=== PATIENT | male | born 1955 | race Caucasian/White ===

== ENCOUNTER 2016-03-12 15:55 | Emergency (ER) | payer BC ==
--- NOTE | 2016-03-12 17:39 | ED ---
General Adult HPI - General Chief complaint: Urogenital Stated complaint: rt groin pain Time Seen by Provider: 03/12/16 17:09 Source: patient, RN notes reviewed Mode of arrival: ambulatory Limitations: no limitations - History of Present Illness Initial comments: This is a 52-year-old male presents with right-sided groin pain 2 weeks. Patient states he saw his regular physician for this pain and was treated with a steroid. Patient states he's finished the steroid and the pain is still persistent. Patient states the pain is worse when he is standing for multiple hours during the day at work. Patient states the pain improves with sitting and resting. Patient describes the pain as a burning in the right inguinal area. Patient denies any swelling, erythema or abdominal pain. Patient denies any nausea/vomiting/diarrhea, fever/chills. Patient denies any heavy lifting at work. Patient is not on any anticoagulants. Patient denies any recent fever , chills, shortness breath, chest pain, back pain, numbness, tingling, hematuria , headache, or visual changes, or any other complaints. - Related Data Home Medications Medication Instructions Recorded Confirmed No Known Home Medications [No 03/12/16 03/12/16 Known Home Medications] Allergies Allergy/AdvReac Type Severity Reaction Status Date / Time No Known Allergies Allergy Verified 03/12/16 16:14 Review of Systems ROS Statement: Those systems with pertinent positive or pertinent negative responses have been documented in the HPI. ROS Other: All systems not noted in ROS Statement are negative. Past Medical History Past Medical History: Hyperlipidemia, Hypertension Additional Past Medical History / Comment(s): HAIRLINE FRACTURES TO BILATERAL HIPS, SPINAL CORD PROBLEMS/ CHIP FX History of Any Multi-Drug Resistant Organisms: None Reported Past Surgical History: No Surgical Hx Reported Past Psychological History: No Psychological Hx Reported Smoking Status: Never smoker Past Alcohol Use History: None Reported Past Drug Use History: None Reported General Exam - General Exam Comments Initial Comments: General: The patient is awake and alert, in no distress, and does not appear acutely ill. Neck: The neck is supple, there is no tenderness or JVD. Cardiovascular: There is a regular rate and rhythm. No murmur, rub or gallop is appreciated. Respiratory: Lungs are clear to auscultation, respirations are non-labored, breath sounds are equal. No wheezes, stridor, rales, or rhonchi. Gastrointestinal: Soft, non-distended, non-tender abdomen without masses or organomegaly noted. There is no rebound or guarding present. No CVA tenderness. Bowel sounds are unremarkable. Musculoskeletal: Normal ROM, no tenderness. Strength 5/5. Sensation intact. Radial pulses equal bilaterally 2+. Neurological: A&O x 3. CN II-XII intact, There are no obvious motor or sensory deficits. Coordination appears grossly intact. Speech is normal. Skin: Skin is warm and dry and no rashes or lesions are noted. Psychiatric: Cooperative, appropriate mood & affect, normal judgment. Limitations: no limitations exam: Present: normal inspection, other (Mild tenderness to palpation of the right inguinal area, no inguinal swelling or erythema. No hernia present on exam.). Absent: testicular tenderness, urethral discharge, scrotal swelling Course Vital Signs 03/12/16 03/12/16 16:08 19:21 Temperature 98.1 F 99.2 F Pulse Rate 79 72 Respiratory 18 16 Rate Blood Pressure 126/89 106/69 O2 Sat by Pulse 98 96 Oximetry Medical Decision Making - Medical Decision Making This is a 60-year-old male who presents with right-sided groin pain. On physical exam there is no evidence of a hernia, no inguinal swelling or erythema. Mild tenderness to palpation of the right inguinal area. No testicular pain. A right groin US was done and reviewed: Ultrasound showed lymph node approximately 1 cm but otherwise no abnormalities and no sign of hernia. I discussed results with patient. I discussed that this could be a muscle strain. I discussed continue use of Tylenol and or Motrin. I discussed that patient keep his follow-up appointment with his doctor tomorrow. Discussed ice and heat to the area. I discussed return parameters. Discussed that patient should follow up with PCP in one to 2 days or return to the [facility] for any worsening symptoms or for any further concerns. Patient was receptive to this plan and patient will be discharged home. Disposition Clinical Impression: Groin pain Disposition: HOME SELF-CARE Condition: Good Instructions: Groin Pain (ED) Additional Instructions: Please continue Tylenol and/or Motrin if they've any pain. Please rest ice and heat to the area. Please continue follow-up with her primary care physician or return to the [facility] for any worsening symptoms or further concerns. Referrals: Abdifatah Grubbs MD [Primary Care Provider] - 1-2 days Time of Disposition: 19:13
[2016-03-12 19:24] VITALS: BP 106/69; PULSE 72; RESP 16; TEMP 99.2
--- NOTE | 2016-03-12 22:22 | US ---
EXAMINATION TYPE: US groin extremity RT DATE OF EXAM: 03/12/2016 6:14 PM COMPARISON: No previous CLINICAL HISTORY: Pain. Intermittent right groin pain x 2 weeks, gets worse when standing TECHNOLOGIST IMPRESSION/RADIOGRAPHIC FINDINGS: Scanned right groin area of pain: 1.0 x 0.5 cm lymph n ode seen containing a fatty hilum, otherwise appears wnl at this time, scanned left groin for compari son: appears wnl at this time IMPRESSION: Single nonenlarged right superficial inguinal lymph node containing a regular fatty hilu m and no cortical thickening. No other sonographic abnormality.
== END 2016-03-12 19:27 | disposition home or self-care (01) ==
LOC: EC 15:55
DX: R10.31 Right lower quadrant pain (principal)
CPT/HCPCS: 99284

== ENCOUNTER → 2018-09-09 | Outpatient (CLI) | payer BC ==
--- NOTE | 2018-09-09 18:37 | CT ---
EXAMINATION TYPE: CT brain wo/w con DATE OF EXAM: 09/09/2018 COMPARISON: 10/16/2010 HISTORY: syncopal episode following head injury [address] DLP: 2108.4 mGycm Automated exposure control for dose reduction was used. CONTRAST: CT scan of the head is performed with IV Contrast, patient injected with 100 mL of Isovue 300. FINDINGS: There is no abnormal enhancing mass or midline shift identified. The ventricles and sulci are within normal limits in size. Low-attenuation the white matter is nonspecific but most typical remote micro vascular ischemia. Intracranial atherosclerotic changes are noted. IMPRESSION: 1. Nonspecific white matter changes most typical remote microvascular ischemia.
== END | disposition home or self-care (01) ==
LOC: RADCTMAIN 17:51
PROVIDERS: ATTEND Family Medicine
DX: I67.82 Cerebral ischemia (principal); S09.90XA Unspecified injury of head, initial encounter; R90.82 White matter disease, unspecified; Z91.018 Allergy to other foods
CPT/HCPCS: 70470; Q9967

== ENCOUNTER → 2019-03-14 | Outpatient (CLI) | payer BC ==
[2019-03-15 08:58] LABS: Creatinine 24 Hour,Urine 1736.4 mg/24hr (1000.0-2000.0)
[2019-03-16 07:47] LABS: Total Protein 24 Hour,Urine 96 mg/24hr (42.0-225.0); Total Volume 24 Hour,Urine 1200 mls (800-1800)
== END | disposition home or self-care (01) ==
LOC: LABWHC1 10:58
PROVIDERS: ATTEND Family Medicine
DX: N18.3 Chronic kidney disease, stage 3 (moderate) (principal)
CPT/HCPCS: 36415; 81050; 82575; 84156

== ENCOUNTER → 2019-03-16 | Outpatient (CLI) | payer BC ==
--- NOTE | 2019-03-16 14:53 | US ---
EXAMINATION TYPE: US kidneys/renal and bladder DATE OF EXAM: 03/16/2019 COMPARISON: NONE CLINICAL HISTORY: N18.3 Stage III Chronic kidney disease. CKD EXAM MEASUREMENTS: Right Kidney: 9.6 x 5.4 x 5.5 cm Left Kidney: 10.2 x 5.4 x 5.6 cm Right Kidney: No hydronephrosis or masses seen Left Kidney: No hydronephrosis or masses seen Bladder: Incompletely distended and suboptimally visualized. Bilateral Jets seen: only the left There is slightly suboptimal cortical medullary differentiation. There is no evidence for hydronephro sis at this point in time. No nephrolithiasis is seen. No masses are identified. The urinary bladd er is anechoic. Bilateral ureteral jets are not seen. IMPRESSION: Very subtly decreased cortical medullary differentiation, in keeping with this patient's history of chronic kidney disease. No hydronephrosis or nephrolithiasis.
== END | disposition home or self-care (01) ==
LOC: RADUSWWP 14:11
PROVIDERS: ATTEND Family Medicine
DX: N18.3 Chronic kidney disease, stage 3 (moderate) (principal); Z91.018 Allergy to other foods
CPT/HCPCS: 76770

== ENCOUNTER 2020-04-26 11:20 | Inpatient (IN) | payer BC, OTHER ==
[2020-04-26] MEDS ORDERED: SODIUM CHLORIDE 0.9% 1,000 ML IV STA (11:53)
[2020-04-26] MEDS ORDERED: ONDANSETRON 4 MG/2 ML VIAL IVP STA (11:53)
[2020-04-26] MEDS ORDERED: PANTOPRAZOLE 40 MG/10 ML VIAL IVP STA (11:53)
[2020-04-26] MEDS ORDERED: MAG HYDROX/AL HYDROX/SIMETH 30 ML, HYOSCYAMINE ELIXIR 10 ML PO STA ×2 (11:54)
[2020-04-26 12:21] LABS: Basophils % (A) 0 %; Eosinophils # (A) 0.1 k/uL (0-0.7); Eosinophils % (A) 1 %; HCT 42.7 % (39.0-53.0); HGB 14.9 gm/dL (13.0-17.5); Lymphocytes # (A) 1.4 k/uL (1.0-4.8); Lymphocytes % (A) 11 %; MCH 31.3 pg (25.0-35.0); MCV 89.4 fL (80.0-100.0); Mean Platelet Volume 6.7; Monocytes # (A) 0.9 k/uL (0-1.0); Monocytes % (A) 7 %; Neutrophils # (A) 10.7 k/uL (1.3-7.7); Neutrophils % (A) 81 %; Platelet Count 216 k/uL (150-450); RBC 4.77 m/uL (4.30-5.90); WBC 13.1 k/uL (3.8-10.6)
[2020-04-26 12:30] LABS: Appearance,Urine Clear (Clear); Bilirubin,Urine Negative (Negative); Blood,Urine Small (Negative); Color,Urine Yellow; Glucose,Urine (UA) Negative (Negative); Ketones,Urine Trace (Negative); Leukocyte Esterase,Urine Negative (Negative); Mucus,Urine Rare /hpf; Nitrite,Urine Negative (Negative); PH, Urine 7.5 (5.0-8.0); Protein,Urine Trace (Negative); RBC,Urine 6 /hpf (0-5); Specific Gravity,Urine 1.016 (1.001-1.035); Urobilinogen,Urine <2.0 mg/dL (<2.0); WBC,Urine 1 /hpf (0-5)
[2020-04-26 12:34] LABS: Albumin 4.4 g/dL (3.5-5.0); Calcium 9.6 mg/dL (8.4-10.2); Potassium 3.7 mmol/L (3.5-5.1); Total Bilirubin 0.9 mg/dL (0.2-1.3); Total Protein 6.8 g/dL (6.3-8.2)
--- NOTE | 2020-04-26 12:56 | ED ---
Abdominal Pain HPI - General Chief Complaint: Abdominal Pain Stated Complaint: Abd Pain, Increased BP Time Seen by Provider: 04/26/20 11:35 Source: patient, RN notes reviewed Mode of arrival: ambulatory Limitations: no limitations - History of Present Illness Initial Comments: 64-year-old male presents emergency Department chief complaint of epigastric p ain. Patient states he has known gastric ulcers that there is drinking some diet pop, which irritated his ulcer. Patient did have some nausea. Patient states he had some chest discomfort yesterday but that has resolved he is symptom-free at this time. He denies diarrhea constipation or dysuria no hematuria or shortness breath this time. Patient states that he felt his blood pressure is slightly elevated. Patient does take multiple medications for blood pressure. Patient offers no complaints. - Related Data Home Medications Medication Instructions Recorded Confirmed Mylqa-L-[id number] [Beano] 300 unit PO AC-TID PRN 04/26/20 04/26/20 Cholecalciferol [Vitamin D3 (25 25 mcg PO DAILY 04/26/20 04/26/20 Mcg = 1000 Iu)] Omeprazole [PriLOSEC] 40 mg PO DAILY 04/26/20 04/26/20 Simvastatin [Zocor] 40 mg PO DAILY 04/26/20 04/26/20 amLODIPine [Norvasc] 10 mg PO DAILY 04/26/20 04/26/20 lisinopriL 40 mg PO DAILY 04/26/20 04/26/20 Allergies Allergy/AdvReac Type Severity Reaction Status Date / Time No Known Allergies Allergy Verified 04/26/20 12:30 Review of Systems ROS Statement: Those systems with pertinent positive or pertinent negative responses have been documented in the HPI. ROS Other: All systems not noted in ROS Statement are negative. Past Medical History Past Medical History: GERD/Reflux, Hyperlipidemia, Hypertension Additional Past Medical History / Comment(s): HAIRLINE FRACTURES TO BILATERAL HIPS, SPINAL CORD PROBLEMS/ CHIP FX History of Any Multi-Drug Resistant Organisms: None Reported Past Surgical History: No Surgical Hx Reported Additional Past Surgical History / Comment(s): hemorroid Past Psychological History: No Psychological Hx Reported Smoking Status: Never smoker Past Alcohol Use History: None Reported Past Drug Use History: None Reported General Exam Limitations: no limitations General appearance: alert, in no apparent distress Head exam: Present: atraumatic, normocephalic, normal inspection Eye exam: Present: normal appearance, PERRL, EOMI. Absent: scleral icterus, conjunctival injection, periorbital swelling ENT exam: Present: normal exam, normal oropharynx, mucous membranes moist Neck exam: Present: normal inspection, full ROM. Absent: tenderness, meningismus, lymphadenopathy Respiratory exam: Present: normal lung sounds bilaterally. Absent: respiratory distress, wheezes, rales, rhonchi, stridor Cardiovascular Exam: Present: regular rate, normal rhythm, normal heart sounds. Absent: systolic murmur, diastolic murmur, rubs, gallop, clicks GI/Abdominal exam: Present: soft, tenderness (Mild epigastric), normal bowel sounds. Absent: distended, guarding, rebound, rigid Back exam: Absent: CVA tenderness (R), CVA tenderness (L) Neurological exam: Present: alert Skin exam: Present: warm, dry, intact, normal color. Absent: rash Course Vital Signs 04/26/20 11:25 Temperature 98.5 F Pulse Rate 101 H Respiratory 20 Rate Blood Pressure 143/100 O2 Sat by Pulse 97 Oximetry Medical Decision Making - Medical Decision Making Patient updated on results. Patient remains chest pain-free does admit to mild epigastric pain which is improving. Patient's troponin is elevated 6.8. Patient has a history of hypertension hyperlipidemia patient had chest pain yesterday. Patient will be admitted for NSTEMI, patient was started on heparin. - Lab Data Result diagrams: 04/26/20 11:56 04/26/20 11:56 Lab Results 04/26/20 04/26/20 04/26/20 Range/Units 11:56 11:56 11:56 WBC 13.1 H (3.8-10.6) k/uL RBC 4.77 (4.30-5.90) m/uL Hgb 14.9 (13.0-17.5) gm/dL Hct 42.7 (39.0-53.0) % MCV 89.4 (80.0-100.0) fL MCH 31.3 (25.0-35.0) pg MCHC 35.0 (31.0-37.0) g/dL RDW 12.0 (11.5-15.5) % Plt Count 216 (150-450) k/uL MPV 6.7 Neutrophils % 81 % Lymphocytes % 11 % Monocytes % 7 % Eosinophils % 1 % Basophils % 0 % Neutrophils # 10.7 H (1.3-7.7) k/uL Lymphocytes # 1.4 (1.0-4.8) k/uL Monocytes # 0.9 (0-1.0) k/uL Eosinophils # 0.1 (0-0.7) k/uL Basophils # 0.0 (0-0.2) k/uL Sodium 137 (137-145) mmol/L Potassium 3.7 (3.5-5.1) mmol/L Chloride 101 (98-107) mmol/L Carbon Dioxide 26 (22-30) mmol/L Anion Gap 10 mmol/L BUN 19 (9-20) mg/dL Creatinine 1.25 (0.66-1.25) mg/dL Est GFR (CKD-EPI)AfAm 71 (>60 ml/min/1.73 sqM) Est GFR (CKD-EPI)NonAf 62 (>60 ml/min/1.73 sqM) Glucose 123 H (74-99) mg/dL Plasma Lactic Acid Iker 1.1 (0.7-2.0) mmol/L Calcium 9.6 (8.4-10.2) mg/dL Total Bilirubin 0.9 (0.2-1.3) mg/dL AST 56 (17-59) U/L ALT 15 (4-49) U/L Alkaline Phosphatase 60 (38-126) U/L Troponin I (0.000-0.034) ng/mL Total Protein 6.8 (6.3-8.2) g/dL Albumin 4.4 (3.5-5.0) g/dL Amylase 74 (30-110) U/L Lipase 76 (23-300) U/L Urine Color Urine Appearance (Clear) Urine pH (5.0-8.0) Ur Specific [place] (1.001-1.035) Urine Protein (Negative) Urine Glucose (UA) (Negative) Urine Ketones (Negative) Urine Blood (Negative) Urine Nitrite (Negative) Urine Bilirubin (Negative) Urine Urobilinogen (<2.0) mg/dL Ur Leukocyte Esterase (Negative) Urine RBC (0-5) /hpf Urine WBC (0-5) /hpf Urine Mucus (None) /hpf 04/26/20 04/26/20 Range/Units 11:56 11:58 WBC (3.8-10.6) k/uL RBC (4.30-5.90) m/uL Hgb (13.0-17.5) gm/dL Hct (39.0-53.0) % MCV (80.0-100.0) fL MCH (25.0-35.0) pg MCHC (31.0-37.0) g/dL RDW (11.5-15.5) % Plt Count (150-450) k/uL MPV Neutrophils % % Lymphocytes % % Monocytes % % Eosinophils % % Basophils % % Neutrophils # (1.3-7.7) k/uL Lymphocytes # (1.0-4.8) k/uL Monocytes # (0-1.0) k/uL Eosinophils # (0-0.7) k/uL Basophils # (0-0.2) k/uL Sodium (137-145) mmol/L Potassium (3.5-5.1) mmol/L Chloride (98-107) mmol/L Carbon Dioxide (22-30) mmol/L Anion Gap mmol/L BUN (9-20) mg/dL Creatinine (0.66-1.25) mg/dL Est GFR (CKD-EPI)AfAm (>60 ml/min/1.73 sqM) Est GFR (CKD-EPI)NonAf (>60 ml/min/1.73 sqM) Glucose (74-99) mg/dL Plasma Lactic Acid Iker (0.7-2.0) mmol/L Calcium (8.4-10.2) mg/dL Total Bilirubin (0.2-1.3) mg/dL AST (17-59) U/L ALT (4-49) U/L Alkaline Phosphatase (38-126) U/L Troponin I 6.880 H* (0.000-0.034) ng/mL Total Protein (6.3-8.2) g/dL Albumin (3.5-5.0) g/dL Amylase (30-110) U/L Lipase (23-300) U/L Urine Color Yellow Urine Appearance Clear (Clear) Urine pH 7.5 (5.0-8.0) Ur Specific [place] 1.016 (1.001-1.035) Urine Protein Trace H (Negative) Urine Glucose (UA) Negative (Negative) Urine Ketones Trace H (Negative) Urine Blood Small H (Negative) Urine Nitrite Negative (Negative) Urine Bilirubin Negative (Negative) Urine Urobilinogen <2.0 (<2.0) mg/dL Ur Leukocyte Esterase Negative (Negative) Urine RBC 6 H (0-5) /hpf Urine WBC 1 (0-5) /hpf Urine Mucus Rare H (None) /hpf Critical Care Time Critical Care Time: Yes Total Critical Care Time: 35 Critical Care Time: Total 35 minutes of critical care time were used initially evaluated the patient, reviewed past medical history or labs and EKG. Patient found have a troponin 6.8. Patient is symptom-free from chest pain chest pain started yesterday. Patient was started on heparin low-dose discussed with cardiology, admitting physician. Disposition Clinical Impression: NSTEMI (non-ST elevated myocardial infarction) Disposition: ADMITTED IP TO THIS HOSP Condition: Fair Referrals: [facility],Clinic [Primary Care Provider] - 1-2 days
[2020-04-26] MEDS ORDERED: ASPIRIN 81 MG PO STA (13:15)
[2020-04-26] MEDS ORDERED: HEPARIN SODIUM,PORCINE 5,000 UNIT/ML 1 ML VIAL IV PRN (13:19)
[2020-04-26] MEDS ORDERED: HEPARIN SODIUM,PORCINE 5,000 UNIT/ML 1 ML VIAL IV ONE (13:19)
[2020-04-26] MEDS ORDERED: NITROGLYCERIN SL TABS 0.4 MG TAB SUBLINGUAL PRN (13:24)
[2020-04-26] MEDS ORDERED: HEPARIN SOD,PORK IN 0.45% NACL 25,000 UNIT in 0.45% NACL 1 250ML.BAG IV SCH (13:30)
--- NOTE | 2020-04-26 14:20 | XR ---
EXAMINATION TYPE: XR chest 2V DATE OF EXAM: 04/26/2020 COMPARISON: None INDICATION: Pain TECHNIQUE: Frontal and lateral views of the chest are obtained. FINDINGS: The heart size is normal. The pulmonary vasculature is normal. The lungs are clear. IMPRESSION: 1. No acute pulmonary process.
[2020-04-26] MEDS ORDERED: ACETAMINOPHEN TAB 325 MG TAB PO STA (14:28)
[2020-04-26] MEDS ORDERED: IOPAMIDOL CONTRAST (ORAL USE) VIAL PO PRN (15:19)
--- NOTE | 2020-04-26 15:27 | P.CRDCN ---
History of Present Illness Consult date: 04/26/20 History of present illness: HISTORY OF PRESENT ILLNESS: This is a 64-year-old male with a past medical history significant for hypertension and hyperlipidemia. 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 We have been asked to see the patient in consultation for abnormal troponins. Patient examined at the bedside in the emergency room. Patient states a few days ago he went to the store and got a 44 ounce Pepsi in the evening and then went to bed. He reports epigastric discomfort in the following morning which he attributed to drinking a large Pepsi the night before. He reports some mild discomfort across his upper left and right abdominal quadrants as well. He reports taking multiple wipa-oxd-tdvayna medications including Tums and sodium bicarb without much relief. He also reports intermittent left-sided chest discomfort since yesterday afternoon. He states yesterday afternoon he decided to go for a walk to see if it would help the discomfort. He states he became nauseated and had an episode of emesis. He denies shortness of breath. Denies cough or congestion. Patient reports over the last 2 days his blood pressure has been elevated with a systolic in the 150s. Patient states his blood pressure usually runs with a systolic in the 120s. EKG reveals sinus mechanism with T-wave inversions in V3 through V5 Chest xray negative for acute process Laboratory data: WBC 13.1. Hemoglobin 14.9. Platelet count 216. Sodium 137. Potassium 3.7. BUN 19. Creatinine 1.25. Troponin 6.880. Current home cardiac medications include amlodipine 10 mg daily, simvastatin 40 mg daily, and lisinopril 41 g daily REVIEW OF SYSTEMS: At the time of my exam: CONSTITUTIONAL: Denies fever or chills. HEENT: Denies blurred vision, vision changes, or eye pain. Denies hemoptysis CARDIOVASCULAR: Denies chest pain. Denies orthopnea. Denies PND. Denies palpitations RESPIRATORY: Denies shortness of breath. GASTROINTESTINAL: Denies abdominal pain. Denies nausea or vomiting. HEMATOLOGIC: Denies bleeding disorders. GENITOURINARY: Denies any blood in urine. SKIN: Denies pruitis. Denies rash. PHYSICAL EXAM: VITAL SIGNS: Reviewed. GENERAL: Well-developed in no acute distress. HEENT: Head is normocephalic. Pupils are equal, round. Sclerae anicteric. Mucous membranes of the mouth are moist. Neck supple. No JVD or thyromegaly LUNGS: Respirations even and unlabored. Lungs essentially clear to auscultation bilaterally. HEART: Regular rate and rhythm. S1 and S2 heard. Soft systolic murmur noted. ABDOMEN: Soft. Nondistended. Nontender. EXTREMITIES: Normal range of motion. No clubbing or cyanosis. Peripheral pulses intact. No lower extremity edema NEUROLOGIC: Awake and alert. Oriented x 3. ASSESSMENT: Epigastric pain Non-ST elevated myocardial infarction Hypertension Hyperlipidemia Fever with leukocytosis PLAN: Obtain 2-D echo to assess cardiac structure and function Continue IV heparin Resume simvastatin and lisinopril. Hold Norvasc Begin aspirin 81 mg daily and metoprolol 25 mg twice a day Originally, plan was for cardiac cath this afternoon or tomorrow. However, patient is febrile with a fever of 101F. He also had leukocytosis on admission. We will hold off on cardiac catheterization at this time. Covid test pending Obtain CT abdomen pelvis with IV and oral contrast Further recommendations pending patient course Nurse practitioner note has been reviewed by physician. Signing provider agrees with the documented findings, assessment, and plan of care. Past Medical History Past Medical History: GERD/Reflux, Hyperlipidemia, Hypertension Additional Past Medical History / Comment(s): HAIRLINE FRACTURES TO BILATERAL HIPS, SPINAL CORD PROBLEMS/ CHIP FX History of Any Multi-Drug Resistant Organisms: None Reported Past Surgical History: No Surgical Hx Reported Additional Past Surgical History / Comment(s): hemorroid Past Psychological History: No Psychological Hx Reported Smoking Status: Never smoker Past Alcohol Use History: None Reported Past Drug Use History: None Reported Medications and Allergies Home Medications Medication Instructions Recorded Confirmed Type Whbxm-[id number]-Ibenzurmkvkdn [Beano] 300 unit PO AC-TID PRN 04/26/20 04/26/20 History Cholecalciferol [Vitamin D3 (25 25 mcg PO DAILY 04/26/20 04/26/20 History Mcg = 1000 Iu)] Omeprazole [PriLOSEC] 40 mg PO DAILY 04/26/20 04/26/20 History Simvastatin [Zocor] 40 mg PO DAILY 04/26/20 04/26/20 History amLODIPine [Norvasc] 10 mg PO DAILY 04/26/20 04/26/20 History lisinopriL 40 mg PO DAILY 04/26/20 04/26/20 History Allergies Allergy/AdvReac Type Severity Reaction Status Date / Time cinnamon Allergy Rash/Hives Verified 04/26/20 13:39 Physical Exam Vitals: Vital Signs Temp Pulse Resp BP Pulse Ox 04/26/20 14:22 101 F H 79 18 145/91 97 04/26/20 11:25 98.5 F 101 H 20 143/100 97 Intake and Output 04/25/20 04/26/20 04/26/20 22:59 06:59 14:59 Other: Weight 71.214 kg Results 04/26/20 11:56 04/26/20 11:56 Cardiac Enzymes 04/26/20 04/26/20 Range/Units 11:56 11:56 AST 56 (17-59) U/L Troponin I 6.880 H* (0.000-0.034) ng/mL CBC 04/26/20 Range/Units 11:56 WBC 13.1 H (3.8-10.6) k/uL RBC 4.77 (4.30-5.90) m/uL Hgb 14.9 (13.0-17.5) gm/dL Hct 42.7 (39.0-53.0) % Plt Count 216 (150-450) k/uL Comprehensive Metabolic Panel 04/26/20 Range/Units 11:56 Sodium 137 (137-145) mmol/L Potassium 3.7 (3.5-5.1) mmol/L Chloride 101 (98-107) mmol/L Carbon Dioxide 26 (22-30) mmol/L BUN 19 (9-20) mg/dL Creatinine 1.25 (0.66-1.25) mg/dL Glucose 123 H (74-99) mg/dL Calcium 9.6 (8.4-10.2) mg/dL AST 56 (17-59) U/L ALT 15 (4-49) U/L Alkaline Phosphatase 60 (38-126) U/L Total Protein 6.8 (6.3-8.2) g/dL Albumin 4.4 (3.5-5.0) g/dL Current Medications Generic Name Dose Route Start Last Admin Trade Name Freq PRN Reason Stop Dose Admin Aspirin 325 mg 04/27/20 09:00 Aspirin 325 Mg Tab PO DAILY GRAY Heparin Sodium (Porcine) 0 unit 04/26/20 13:19 Heparin Sodium,Porcine 5,000 Unit/Ml 1 Ml Vial IV PER PROTOCOL PRN Low PTT Protocol Heparin Sodium/Sodium Chloride 250 mls @ 8.546 mls/hr 04/26/20 13:30 04/26/20 14:02 25,000 unit/ Sodium Chloride IV 12 units/kg/hr .Q24H GRAY 8.546 mls/hr Administration Protocol 12 UNITS/KG/HR Nitroglycerin 0.4 mg 04/26/20 13:24 Nitroglycerin Sl Tabs 0.4 Mg Tab SUBLINGUAL Q5M PRN Chest Pain Intake and Output 04/25/20 04/26/20 04/26/20 22:59 06:59 14:59 Other: Weight 71.214 kg Patient Weight 04/27/20 06:59 Weight 71.214 kg 04/26/20 11:56 04/26/20 11:56
[2020-04-26] MEDS: METOPROLOL TARTRATE 25 MG TAB PO SCH ×2 (15:29→20:46)
[2020-04-26] MEDS: lisinopriL 20 MG TAB PO SCH (15:29)
[2020-04-26] MEDS: ATORVASTATIN 20 MG TAB PO SCH (15:30)
[2020-04-26] MEDS: SODIUM CHLORIDE 0.9% 1,000 ML IV SCH (16:25)
[2020-04-26] MEDS ORDERED: POTASSIUM CHLORIDE 20 MEQ in WATER FOR INJECTION 1 100ML.BAG IVPB STA (17:28)
[2020-04-26] MEDS ORDERED: POTASSIUM CHLORIDE ER 20 MEQ TAB.ER PO STA (17:42)
--- NOTE | 2020-04-26 17:43 | CT ---
EXAMINATION TYPE: CT chest wo con DATE OF EXAM: 04/26/2020 COMPARISON: None HISTORY: Fever, chest and abdominal pain CT DLP: 272.4 mGycm Automated exposure control for dose reduction was used. Images obtained from the thoracic inlet to the diaphragm without contrast. There is mild subsegmental atelectasis right lung base. The lungs are clear of infiltrate. There is n o evidence of a pulmonary mass. Heart size is normal. There is no pericardial effusion. There is no p leural effusion. The thoracic spine is intact. There is no compression fracture. Sternum is intact. There is no mediastinal adenopathy. There are no hilar masses. There is coronary artery calcification . Upper abdominal soft tissues are intact. IMPRESSION: Minimal subsegmental atelectasis right lung base. No suspicious pulmonary mass. No evidence of bronch opneumonia.
--- NOTE | 2020-04-26 18:10 | CT ---
EXAMINATION TYPE: CT abdomen pelvis w con DATE OF EXAM: 04/26/2020 COMPARISON: None HISTORY: Fever, chest and abdominal pain CT DLP: 751.1 mGycm Automated exposure control for dose reduction was used. CONTRAST: Performed with IV Contrast, patient injected with 100 mL of Isovue 300. Images obtained from the diaphragm to the floor the pelvis with oral and IV contrast. There is minimal subsegmental atelectasis right lung base. Heart size is normal. There is no pericard ial effusion. Liver spleen pancreas stomach appear intact. The bile ducts are not dilated. The gallbladder appears normal. There is no adrenal mass. Kidneys show satisfactory contrast opacification. There is no hydronephrosi s. Ureters are not dilated. There is no retroperitoneal adenopathy. Delayed images show normal renal excretion. Bladder distends smoothly. There is no inguinal hernia. There is no free fluid in the pelv is. There is calcification of the vas deferens. This is associated with diabetes. There is no evidenc e of a pelvic mass. There is no mesenteric edema. There is no ascites or free air. There is no sign of a bowel obstructio n. There is no sign of thickened appendix. Appendix not definitely seen. There is a minimal L4-5 subluxation of 5 mm. There is no spondylolysis. There is no lumbar compressio n fracture. The bony pelvis is intact. The hip joints appear intact. IMPRESSION: No acute abnormality of the abdomen pelvis. Atherosclerotic vascular disease. Degenerative first-degr ee L4-5 spondylolisthesis. Appendix not seen.
--- NOTE | 2020-04-26 18:14 | PN ---
PROGRESS NOTE Mr. Wayne was seen and evaluated by my nurse practitioner, Mona Fenton. Please refer to that note. This gentleman came in with nondescript chest and more so epigastric pain. He took some Pepcid and he complains of mid epigastric discomfort. There is some tenderness in the epigastric area. Also he has elevated white count and fever of 101. An abdominal CT was performed. Results are pending. He received some contrast for this. He is completely free of chest pain. Two sets of troponins are available. One is 6.8. The other is 7.2. EKG revealed precordial ST-T changes. He is in a sinus mechanism. He is hemodynamically stable. Physical exam is unremarkable. Mild epigastric tenderness. Normal bowel sounds. I am recommending that I will do coronary angiography and PCI at 6:45 a.m. tomorrow, but if he has any pain or discomfort, I will do him in the night. He is on a heparin drip, on a beta rolando and aspirin. I explained to him the rationale, risks, benefits, options. He understands all details and wishes to proceed with the procedure. If he has any symptoms before then, I will do the procedure emergently, and patient is aware of this. In the meantime, I will check the CT scan results as well. He has received some contrast for this. We will hydrate him through the night. MMKARLAL / IJN: [id number] /
--- NOTE | 2020-04-26 19:58 | P.HPIM ---
History of Present Illness This is a pleasant 64 years old male with past medical history of hypertension, hyperlipidemia, gastroesophageal reflux disease. He follows up at the [facility] [place]. He presents because of upper abdominal pain and tenderness of 2 days' duration that wake him up yesterday, it is across the upper abdomen and lower chest but his tenderness mainly in the epigastric. He tried several cytx-rxf-jxlsnnk medication like this mass, and antiacids with no help, enter on each right sodium bicarb and baking soda which helped a little bit. He describes the pain as burning, 3/10 in severity associated with nausea and vomiting twice. No other chest pain or dyspnea. No coughing. Both complains from some cramping in the both legs He denies smoking, alcohol or illicit drug. On admission he developed fever of 101, blood pressure is 1:30/93. Restoril vitals are stable and he is saturating 98% on room air He had mild leukocytosis of 13.1 K, BMP and liver enzymes are unremarkable but troponin is elevated 6.8 and 7.2, Lipase is normal at 76 Urine analysis looks dehydrated sample but not very suggestive of infection. Ingram virus not detected Patient had CT of the abdomen and pelvis with IV contrast which was unremarkable CT of the chest without contrast showing mild atelectasis, no consolidation, no suspicious pulmonary mass, no evidence of bronchopneumonia EKG showing normal sinus rhythm at 76 with poor R-wave progression in V1 to V2, T-wave inversion in V1 to V6. QTC is 454 in emergency room marine design engineer team evaluated the patient and they were planning for cardiac cath today however patient developed significant fever of 101 so cardiac cath was held and patient was placed on heparin drip Review of Systems CONSTITUTIONAL: No fever, no malaise, no fatigue. HEENT: No recent visual problems or hearing problems. Denied any sore throat. CARDIOVASCULAR: No orthopnea, PND, no palpitations, no syncope. PULMONARY: No shortness of breath, no cough, no hemoptysis. GASTROINTESTINAL: No diarrhea. Normoactive bowel sounds. NEUROLOGICAL: No headaches, no weakness, no numbness. HEMATOLOGICAL: Denies any bleeding or petechiae. GENITOURINARY: Denies any burning micturition, frequency, or urgency. MUSCULOSKELETAL/RHEUMATOLOGICAL: Denies any joint pain, swelling, or any muscle pain. ENDOCRINE: Denies any polyuria or polydipsia. Past Medical History Past Medical History: GERD/Reflux, Hyperlipidemia, Hypertension Additional Past Medical History / Comment(s): HAIRLINE FRACTURES TO BILATERAL HIPS, SPINAL CORD PROBLEMS/ CHIP FX History of Any Multi-Drug Resistant Organisms: None Reported Past Surgical History: No Surgical Hx Reported Additional Past Surgical History / Comment(s): hemorroid Past Psychological History: No Psychological Hx Reported Smoking Status: Never smoker Past Alcohol Use History: None Reported Past Drug Use History: None Reported Medications and Allergies Home Medications Medication Instructions Recorded Confirmed Type Jyrew-Z-Ohubouoiafhxy [Beano] 300 unit PO AC-TID PRN 04/26/20 04/26/20 History Cholecalciferol [Vitamin D3 (25 25 mcg PO DAILY 04/26/20 04/26/20 History Mcg = 1000 Iu)] Omeprazole [PriLOSEC] 40 mg PO DAILY 04/26/20 04/26/20 History Simvastatin [Zocor] 40 mg PO DAILY 04/26/20 04/26/20 History amLODIPine [Norvasc] 10 mg PO DAILY 04/26/20 04/26/20 History lisinopriL 40 mg PO DAILY 04/26/20 04/26/20 History Allergies Allergy/AdvReac Type Severity Reaction Status Date / Time cinnamon Allergy Rash/Hives Verified 04/26/20 13:39 Physical Exam Vitals: Vital Signs Temp Pulse Resp BP Pulse Ox 04/26/20 17:27 98.6 F 63 18 130/93 98 04/26/20 16:28 98.4 F 70 18 130/93 97 04/26/20 15:32 99.1 F 73 16 138/92 97 04/26/20 14:22 101 F H 79 18 145/91 97 04/26/20 11:25 98.5 F 101 H 20 143/100 97 Intake and Output 04/26/20 04/26/20 04/26/20 06:59 14:59 22:59 Other: Weight 71.214 kg GENERAL: The patient is alert and oriented x3, not in any acute distress. Well developed, well nourished. HEENT: Pupils are round and equally reacting to light. EOMI. No scleral icterus. No conjunctival pallor. Normocephalic, atraumatic. No pharyngeal erythema. No thyromegaly. CARDIOVASCULAR: S1 and S2 present. No murmurs, rubs, or gallops. PULMONARY: Chest is clear to auscultation, no wheezing or crackles. -ABDOMEN: Soft, mild epigastric tenderness, no rebound tenderness, no guarding, abdomen is soft, nondistended, normoactive bowel sounds. No palpable organomegaly. MUSCULOSKELETAL: No joint swelling or deformity. EXTREMITIES: No cyanosis, clubbing, or pedal edema. NEUROLOGICAL: Gross neurological examination did not reveal any focal deficits. SKIN: No rashes. No petechiae Results CBC & Chem 7: 04/26/20 11:56 04/26/20 11:56 Labs: Abnormal Lab Results - Last 24 Hours (Table) 04/26/20 04/26/20 04/26/20 Range/Units 11:56 11:56 11:56 WBC 13.1 H (3.8-10.6) k/uL Neutrophils # 10.7 H (1.3-7.7) k/uL Glucose 123 H (74-99) mg/dL Troponin I 6.880 H* (0.000-0.034) ng/mL Urine Protein (Negative) Urine Ketones (Negative) Urine Blood (Negative) Urine RBC (0-5) /hpf Urine Mucus (None) /hpf 04/26/20 04/26/20 Range/Units 11:58 15:51 WBC (3.8-10.6) k/uL Neutrophils # (1.3-7.7) k/uL Glucose (74-99) mg/dL Troponin I 7.250 H* (0.000-0.034) ng/mL Urine Protein Trace H (Negative) Urine Ketones Trace H (Negative) Urine Blood Small H (Negative) Urine RBC 6 H (0-5) /hpf Urine Mucus Rare H (None) /hpf Assessment and Plan Assessment: Elevated troponin with epigastric pain concerning for non-STEMI Possible sepsis with leukocytosis and fever. Unknown source. Ingram Virus is negative Hypertension Hyperlipidemia History of GERD Plan: This is a pleasant 64 years old male who presents with non-STEMI and sepsis of unknown origin. Continue with aspirin and heparin drip and antihypertensive medication per [employer] recommendation. Check echocardiogram. Check a blood culture, C-reactive protein, protcalcitonin. Start the patient empirically on Zosyn. Continue with gentle hydration. Labs and medication were reviewed.. Continue same treatment. Continue with symptomatic treatment. Resume home medication. Monitor lytes and vitals. DVT and GI prophylaxis. Further recommendations depends on the clinical course of the patient DVT prophylaxis: heparin GI Prophylaxis: Ppi Prognosis is guarded
[2020-04-26] MEDS: PIPERACILLIN-TAZOBACTAM 3.375 GM in SODIUM CHLORIDE 0.9% 100 ML IVPB SCH (20:52)
--- NOTE | 2020-04-26 21:01 | US ---
EXAMINATION TYPE: US venous doppler duplex LE DATE OF EXAM: 04/26/2020 7:59 PM COMPARISON: NONE CLINICAL HISTORY: Rule out DVT. R/O DVT. Chest pain. SIDE PERFORMED: Bilateral TECHNIQUE: The lower extremity deep venous system is examined utilizing real time linear array sonog angelica with graded compression, doppler sonography and color-flow sonography. VESSELS IMAGED: Common Femoral Vein Deep Femoral Vein Greater Saphenous Vein * Femoral Vein Popliteal Vein Small Saphenous Vein * Proximal Calf Veins (* superficial vessels) Limited due to swelling. Right Leg: No evidence of DVT in veins imaged at this time from prox calf veins to CFV/GSV. Left Leg: No evidence of DVT in veins imaged at this time from prox calf veins to CFV/GSV. IMPRESSION: No sign of deep vein thrombosis in both legs.
[2020-04-27] MEDS: PIPERACILLIN-TAZOBACTAM 3.375 GM in SODIUM CHLORIDE 0.9% 100 ML IVPB SCH ×3 (03:43→20:10)
[2020-04-27] MEDS: SODIUM CHLORIDE 0.9% 1,000 ML IV SCH (03:44)
[2020-04-27 04:25] LABS: Basophils % (A) 0 %; Eosinophils # (A) 0.1 k/uL (0-0.7); Eosinophils % (A) 1 %; HCT 40.1 % (39.0-53.0); HGB 13.7 gm/dL (13.0-17.5); Lymphocytes # (A) 2.1 k/uL (1.0-4.8); Lymphocytes % (A) 19 %; MCH 31.2 pg (25.0-35.0); MCHC 34.1 g/dL (31.0-37.0); MCV 91.2 fL (80.0-100.0); Mean Platelet Volume 6.5; Monocytes # (A) 0.8 k/uL (0-1.0); Monocytes % (A) 8 %; Neutrophils # (A) 7.6 k/uL (1.3-7.7); Neutrophils % (A) 71 %; Platelet Count 191 k/uL (150-450); RBC 4.39 m/uL (4.30-5.90); WBC 10.8 k/uL (3.8-10.6)
[2020-04-27 04:46] LABS: Albumin 3.6 g/dL (3.5-5.0); Calcium 8.9 mg/dL (8.4-10.2); Potassium 3.9 mmol/L (3.5-5.1)
[2020-04-27 05:11] LABS: Partial Thromboplastin Time 45.1 sec (22.0-30.0); Prothrombin Time 10.4 sec (9.0-12.0)
[2020-04-27] MEDS: lisinopriL 20 MG TAB PO SCH (05:24)
[2020-04-27] MEDS: ASPIRIN 81 MG PO SCH (05:25)
[2020-04-27] MEDS: ATORVASTATIN 20 MG TAB PO SCH (05:25)
[2020-04-27] MEDS: METOPROLOL TARTRATE 25 MG TAB PO SCH ×2 (05:25→20:09)
[2020-04-27 06:21] LABS: Bilirubin,Unconjugated 0.9 mg/dL (0.0-1.1); Total Bilirubin 0.9 mg/dL (0.2-1.3)
[2020-04-27] MEDS ORDERED: IV FLUID CONTINUATION 1,000 ML IV ONE (06:30)
[2020-04-27] MEDS ORDERED: LIDOCAINE 1% INJ 10MG/ML (20 ML MDV) ONE (06:45)
[2020-04-27] MEDS ORDERED: VERAPAMIL 2.5 MG/ML 2 ML AMP ONE (06:45)
[2020-04-27] MEDS ORDERED: MIDAZOLAM 2 MG/2 ML VIAL IVP ONE (06:54)
[2020-04-27] MEDS ORDERED: LIDOCAINE 1% INJ 10MG/ML (20 ML MDV) SQ ONE (06:57)
[2020-04-27] MEDS ORDERED: VERAPAMIL SYRINGE (5 MG/10 ML) INTRAARTER ONE (06:59)
[2020-04-27] MEDS ORDERED: HEPARIN SODIUM 1,000 UN/ML (10ML VL) ONE (07:00)
[2020-04-27] MEDS ORDERED: HEPARIN SODIUM 1,000 UN/ML (10ML VL) IV ONE (07:01)
[2020-04-27] MEDS ORDERED: BIVALIRUDIN BOLUS 250 MG/50 ML IV ONE (07:12)
[2020-04-27] MEDS ORDERED: BIVALIRUDIN 250 MG in SODIUM CHLORIDE 0.9% 50 ML IV ONE (07:13)
[2020-04-27] MEDS ORDERED: TICAGRELOR 90 MG TAB ONE (07:21)
[2020-04-27] MEDS ORDERED: IOPAMIDOL-370 100ML BTL INJ ONE ×2 (07:26→07:59)
[2020-04-27] MEDS ORDERED: TICAGRELOR 90 MG TAB PO ONE (07:26)
--- NOTE | 2020-04-27 07:37 | ECHOF ---
Referral Reason:NSTEMI MEASUREMENTS -------- HEIGHT: 172.7 cm WEIGHT: 71.2 kg BP: IVSd: 1.0 cm (0.6 - 1.1) LVIDd: 3.4 cm (3.9 - 5.3) LVPWd: 1.1 cm (0.6 - 1.1) IVSs: 1.5 cm LVIDs: 2.0 cm LVPWs: 1.2 cm LAESV Index (A-L): 16.77 ml/m Ao Diam: 3.0 cm (2.0 - 3.7) AV Cusp: 1.8 cm (1.5 - 2.6) LA Diam: 2.8 cm (2.7 - 3.8) MV EXCURSION: 11.800 mm (> 18.000) MV EF SLOPE: 95 mm/s (70 - 150) EPSS: 0.9 cm MV E Manny: 0.67 m/s MV DecT: 217 ms MV A Manny: 0.83 m/s MV E/A Ratio: 0.80 RAP: 5.00 mmHg RVSP: 12.32 mmHg FINDINGS -------- This was a technically difficult study with suboptimal views. The left ventricular size is normal. Left ventricular wall thickness is normal. Overall left vent ricular systolic function is mildly impaired with, an EF between 45 - 50 %. The diastolic filling p attern is normal for the age of the patient 8.04. Basal inferoseptal LV wall motion is hypokinetic. Apical septum LV wall motion is hypokinetic. The right ventricle is normal in size. The left atrial size is normal. Normal LA size by volume 22+/-6 ml/m2. The right atrial size is normal. The aortic valve is trileaflet and appears structurally normal. The mitral valve is normal. There is trace mitral regurgitation. The tricuspid valve appears structurally normal. Trace tricuspid regurgitation present. Right urbano tricular systolic pressure is normal at < 35 mmHg. There is no pulmonic regurgitation present. The aortic root size is normal. IVC Not well visulized. There is a trivial pericardial effusion present. Lumason used CONCLUSIONS -------- 1. The left ventricular size is normal. 2. Left ventricular wall thickness is normal. 3. Overall left ventricular systolic function is mildly impaired with, an EF between 45 - 50 %. 4. The diastolic filling pattern is normal for the age of the patient 8.04 5. Basal inferoseptal LV wall motion is hypokinetic. 6. Apical septum LV wall motion is hypokinetic. 7. There is trace mitral regurgitation. 8. Trace tricuspid regurgitation present. 9. There is a trivial pericardial effusion present. INORGANIC CHEMISTRY TEACHER: Jasmin Cash RDCS
[2020-04-27] MEDS: NITROGLYCERIN 1000MCG/10ML SYRINGE INTRACORON ONE ×4 (07:46→08:17)
[2020-04-27] MEDS ORDERED: IOPAMIDOL-370 50ML BTL INJ ONE (08:20)
[2020-04-27] MEDS ORDERED: ATORVASTATIN 20 MG TAB PO ONE (09:00)
[2020-04-27] MEDS ORDERED: ASPIRIN 325 MG TAB PO SCH (09:00)
[2020-04-27] MEDS ORDERED: lisinopriL 20 MG TAB PO SCH (09:00)
[2020-04-27] MEDS ORDERED: METOPROLOL TARTRATE 25 MG TAB PO ONE (09:00)
[2020-04-27] MEDS ORDERED: PANTOPRAZOLE 40 MG/10 ML VIAL IVP SCH (09:00)
--- NOTE | 2020-04-27 09:44 | CC ---
CARDIAC CATHETERIZATION REPORT CARDIAC CATHETERIZATION AND PCI REPORT: DATE OF SERVICE: 04/27/2020. PROCEDURE: 1. Left heart catheterization and coronary angiography. 2. PTCA and stenting of a complex calcified mid LAD and major diagonal branch with drug-eluting stents. PERFORMED BY: Dr. Ester Ballard. Moderate conscious sedation time was 85 minutes. Patient was administered Versed. Oxygen saturation, hemodynamics and EKG were monitored closely. CLINICAL INFORMATION: Mr. Wilton Wayne is a 64-year-old gentleman with a known history of hypertension and hyperlipidemia who is under the care of the [facility] physician in [place]. He came into the hospital with a chest discomfort and then went on to have significant abdominal discomfort. There was epigastric tenderness. He took some Tums and Pepcid to feel better without much relief. However, he had precordial ST-T changes and troponin elevation. He had an abdominal CAT scan and also CT of the chest. These studies did not reveal anything significant. Patient's chest pain was relieved with heparin and beta blockers. Given his non ST elevation AZ probably in the LAD distribution, I recommended coronary angiography after due discussion regarding risks, benefits, and options. There was no other family member available. I left a message for his brother who is his immediate relative. PROCEDURE NOTE: Under local anesthesia and strict aseptic precautions, a 6-Anguillan introducer was placed in the right radial artery. I used a JL3.5 and JR4 catheters for coronary angiography and the same right catheter was used to check LV pressure, but I did not perform LV gram. Following the cardiac cath procedure, I performed intervention of the LAD and diagonal and then the sheath was taken out and TR band applied as per protocol with saturation of the fingers of the right hand of about 95%. The patient received Angiomax bolus and infusion as per protocol and he also received Brilinta 180 mg orally. CARDIAC CATHETERIZATION FINDINGS: The left ventricular end-diastolic pressure was 7 mmHg without any gradient across aortic valve. CORONARY ANGIOGRAPHY FINDINGS: RIGHT CORONARY ARTERY: Calcified vessel, dominant. In the proximal portion, there is moderate calcification a 35% lesion. Then the caliber improves distally bifurcates into a large PDA and a small PLV, which seems to supply to the circumflex distribution also. No significant disease in the RCA other than the proximal 35% narrowing. The PLV is very small, but seems to provide some circulation in the AV groove branch as well. The RCA therefore is a dominant vessel with proximal 35% narrowing, moderate calcification. LEFT MAIN CORONARY ARTERY: Short patent vessel. Free of significant disease that bifurcates into LAD and circumflex. LEFT ANTERIOR DESCENDING CORONARY ARTERY: A heavily calcified vessel which gives off a small diagonal branch proximally and then there is a large diagonal branch. This large diagonal branch has about a 70% to 80% narrowing, both at the ostium and the proximal portion. After the diagonal branch, the LAD has a 95% stenosis with heavy calcification and then gives off septal branches and runs all the way to the apex supplying a sizable amount of myocardium. LAD is therefore heavily calcified in the LAD as well as the diagonal and both of these have significant lesions 95% in LAD and 85% in diagonal branch. Distal area appears to be free of significant disease and the vessel runs all the way to the apex. LEFT POSTERIOR CIRCUMFLEX CORONARY ARTERY: This is a nondominant circumflex, which is very tortuous and in the proximal 1/3, there is a very eccentric 75% to 80% lesion appears to be quite tight best seen in the KLAUDIA cranial projection and then it gives off what seems to be a good-size obtuse marginal branch and then continues in the AV groove and distally gives off large posterolateral branches. The proximal circumflex therefore has an eccentric lesion, very tortuous, calcified, and significant, but not the culprit lesion. Left ventriculogram was not performed. FINAL IMPRESSION: This patient has a right dominant system, a 95% mid LAD and an 85% proximal and mid diagonal. The proximal circumflex has another 80% lesion. RCA dominant has 35% proximal lesion. No gradient across aortic valve. Normal filling pressures. RECOMMENDATIONS: I recommended PCI of LAD and possibly diagonal and proceeded to perform this in the same setting. PCI PROCEDURE DETAILS: A JL3.5 guide catheter was used to cannulate the left coronary artery. This was a 6- Anguillan catheter. I used a run-through wire to cross the lesion in the LAD. Predilatation was performed with a 2.5 caliber 20 mm long NC Trek balloon. I had quite a bit of difficulty because of extreme calcification. Some manipulation was necessary and following the predilatation I advanced and positioned a 15 mm long 3.0 caliber Xience stent and deployed this. The distal portion of the lesion was very well covered. The proximal portion had a small area which was not as well covered and this was immediately after the diagonal branch. Excellent angiographic result was achieved of the LAD, but the area of LAD right after the diagonal had still some haziness. I then turned my attention to the diagonal branch. This was extremely tortuous and there was heavy calcification at the origin. I had difficulty with the balloon. With a 2.25 caliber NC Trek balloon I dilated the diagonal both in the ostium and the proximal portion and then deployed a 15 mm long 2.25 caliber Xience stent, but a portion of the distal 1/3 of the stent did not open very well. I went back and postdilated that with a 2.5 caliber NC Trek balloon at 12 atmospheres that showed modest improvement. However, the ostium still had what seems to be a small dissection as the diagonal came off the LAD. After some deliberation and taking multiple pictures, I addressed this with an 8 mm long 2.25 caliber Xience stent. The ostium of the diagonal has a 2.25 Xience stent and telescoped into the 15 mm long stent. Excellent result of the diagonal was achieved. The stent was fully expanded except in one area where there was heavy calcification. I even went back with a 2.5 caliber 8 mm NC Trek balloon with post dilatation with modest improvement. I then noted that the area of the LAD immediately after the diagonal was looking a bit hazy and that area was not covered with the stent. I tried to advance a _3.0___, 8 mm stent but I had difficulty because of the diagonal stent jutting back. I used a 15 mm long NC Trek balloon of 3.0 caliber with this I dilated across the diagonal. I then went ahead with a 3.0 caliber 8 mm Xience stent and deployed this right after the diagonal branch in V formation. The 3.0 .0stent was telescoped into the 15 mm long 3.0 stent in the LAD. Excellent angiographic result was achieved. Patient had chest pain with LAD inflation and ST elevation in the anterior leads. Excellent angiographic result was achieved without complication. The sheath was then taken out and a TR band applied as per protocol and patient was sent to the room in a stable condition. Findings were discussed with the patient, but I could not reach any family. We left a message for his brother by way of a voicemail. Overall result is excellent. MMODL / IJN: [id number] / TAYLA
[2020-04-27 14:04] LABS: Hemoglobin A1C 5.4 % (4.0-6.0)
--- NOTE | 2020-04-27 15:07 | P.PN ---
Subjective This is a pleasant 64 years old male with past medical history of hypertension, hyperlipidemia, gastroesophageal reflux disease. He follows up at the [facility]. He presents because of upper abdominal pain and tenderness of 2 days' duration that wake him up yesterday, it is across the upper abdomen and lower chest but his tenderness mainly in the epigastric. He tried several nrfx-ggc-bmfiuhk medication like this mass, and antiacids with no help, enter on each right sodium bicarb and baking soda which helped a little bit. He describe s the pain as burning, 3/10 in severity associated with nausea and vomiting twice. No other chest pain or dyspnea. No coughing. Both complains from some cramping in the both legs He denies smoking, alcohol or illicit drug. On admission he developed fever of 101, blood pressure is 1:30/93. Restoril vitals are stable and he is saturating 98% on room air He had mild leukocytosis of 13.1 K, BMP and liver enzymes are unremarkable but troponin is elevated 6.8 and 7.2, Lipase is normal at 76 Urine analysis looks dehydrated sample but not very suggestive of infection. Ingram virus not detected Patient had CT of the abdomen and pelvis with IV contrast which was unremarkable CT of the chest without contrast showing mild atelectasis, no consolidation, no suspicious pulmonary mass, no evidence of bronchopneumonia EKG showing normal sinus rhythm at 76 with poor R-wave progression in V1 to V2, T-wave inversion in V1 to V6. QTC is 454 in emergency room medical center manager team evaluated the patient and they were planning for cardiac cath today however patient developed significant fever of 101 so ca rdiac cath was held and patient was placed on heparin drip 04/27/2020 Patient underwent cardiac cath today with stent placement in the LAD, status post stent placement. Today his upper abdominal pain is feeling better and currently rated as 0/10. Vitals are stable. Leukocytosis improving down to 10.8 gait. procalcitonin is normal at 0.05. He had low-grade temperature this morning and 8.8. Patient is already started on Zosyn however it looks like his fever and leukocytosis related to his cardiac disease rather than infection. Infectious disease on the case hour device sales consultant and we are waiting for their final recommendation. Creatinine went up a little bit 1.39, patient yesterday got some contrast with CT of the abdomen. CT of the chest was done without contrast. Also patient today Cardiac cath so we'll monitor his creatinine tomorrow. Review of Systems CONSTITUTIONAL: No fever, no malaise, no fatigue. HEENT: No recent visual problems or hearing problems. Denied any sore throat. CARDIOVASCULAR: No orthopnea, PND, no palpitations, no syncope. PULMONARY: No shortness of breath, no cough, no hemoptysis. GASTROINTESTINAL: No diarrhea. Normoactive bowel sounds. NEUROLOGICAL: No headaches, no weakness, no numbness. Active Medications Generic Name Dose Route Start Last Admin Trade Name Freq PRN Reason Stop Dose Admin Aspirin 81 mg 04/27/20 09:00 04/27/20 05:25 Aspirin 81 Mg PO 81 mg DAILY [facility] Administration Atorvastatin Calcium 80 mg 04/28/20 09:00 Atorvastatin 80 Mg Tab PO DAILY [facility] Heparin Sodium (Porcine) 0 unit 04/26/20 13:19 Heparin Sodium,Porcine 5,000 Unit/Ml 1 Ml Vial IV PER PROTOCOL PRN Low PTT Protocol Sodium Chloride 1,000 mls @ 75 mls/hr 04/26/20 16:15 04/27/20 03:44 Saline 0.9% IV 04/27/20 16:30 75 mls/hr .[id number] [facility] Administration Piperacillin Sod/Tazobactam 100 mls @ 25 mls/hr 04/26/20 20:00 04/27/20 11:54 Sod 3.375 gm/ Sodium Chloride IVPB 25 mls/hr Q8H [facility] Administration Iopamidol 30 ml 04/26/20 15:19 Iopamidol Contrast (Oral Use) Vial PO 04/27/20 15:[address] Scan Lisinopril 20 mg 04/28/20 09:00 Lisinopril 20 Mg Tab PO DAILY [facility] Metoprolol Tartrate 50 mg 04/28/20 09:00 Metoprolol Tartrate 50 Mg Tab PO DAILY [facility] Metoprolol Tartrate 25 mg 04/27/20 21:00 Metoprolol Tartrate 25 Mg Tab PO HS [facility] Nitroglycerin 0.4 mg 04/26/20 13:24 Nitroglycerin Sl Tabs 0.4 Mg Tab SUBLINGUAL Q5M PRN Chest Pain Pantoprazole Sodium 40 mg 04/28/20 09:00 Pantoprazole 40 Mg Tablet PO DAILY [facility] Ticagrelor 90 mg 04/28/20 09:00 Ticagrelor 90 Mg Tab PO BID [facility] Objective - Vital Signs Vital signs: Vital Signs Temp 98.2 F 04/27/20 12:00 Pulse 67 04/27/20 12:17 Resp 18 04/27/20 12:17 BP 124/79 04/27/20 12:17 Pulse Ox 96 04/27/20 13:24 Intake & Output 04/26/20 04/27/20 04/27/20 18:59 06:59 18:59 Intake Total 1487.272 852.5 Balance 1487.272 852.5 Weight 71.214 kg 68.1 kg Intake: IV 400 727.5 Piperacillin-Tazobactam 3 100 .375 gm In Sodium Chloride 0.9% 100 ml @ 25 mls/hr IVPB Q8H [facility] Rx#: [id number] Sodium Chloride 0.9% 1, 600 000 ml @ 75 mls/hr IV . [id number] [facility] Rx#:[id number] Intake, IV Titration 847.272 Amount Heparin Sod,Pork in 0.45% 147.272 NaCl 25,000 unit In 0.45 % NaCl 1 250ml.bag @ 12 UNITS/KG/HR 8.546 mls/hr IV .Q24H [facility] Rx#: [id number] Piperacillin-Tazobactam 3 100 .375 gm In Sodium Chloride 0.9% 100 ml @ 25 mls/hr IVPB Q8H [facility] Rx#: [id number] Sodium Chloride 0.9% 1, 600 000 ml @ 75 mls/hr IV . [id number] [facility] Rx#:[id number] Oral 240 125 Other: Voiding Method Toilet Urinal # Voids 1 - Exam GENERAL: The patient is alert and oriented x3, not in any acute distress. Well developed, well nourished. HEENT: Pupils are round and equally reacting to light. EOMI. No scleral icterus. No conjunctival pallor. Normocephalic, atraumatic. No pharyngeal erythema. No thyromegaly. CARDIOVASCULAR: S1 and S2 present. No murmurs, rubs, or gallops. PULMONARY: Chest is clear to auscultation, no wheezing or crackles. ABDOMEN: Soft, nontender, nondistended, normoactive bowel sounds. No palpable organomegaly. MUSCULOSKELETAL: No joint swelling or deformity. EXTREMITIES: No cyanosis, clubbing, or pedal edema. NEUROLOGICAL: Gross neurological examination did not reveal any focal deficits. SKIN: No rashes. no petechiae. - Labs CBC & Chem 7: 04/27/20 03:47 04/27/20 03:47 Labs: Abnormal Lab Results - Last 24 Hours (Table) 04/26/20 04/26/20 04/27/20 Range/Units 15:51 19:00 03:47 WBC (3.8-10.6) k/uL APTT 45.1 H (22.0-30.0) sec Chloride (98-107) mmol/L Creatinine (0.66-1.25) mg/dL Glucose (74-99) mg/dL Troponin I 7.250 H* 7.430 H* (0.000-0.034) ng/mL Total Protein (6.3-8.2) g/dL 04/27/20 04/27/20 Range/Units 03:47 03:47 WBC 10.8 H (3.8-10.6) k/uL APTT (22.0-30.0) sec Chloride 108 H (98-107) mmol/L Creatinine 1.39 H (0.66-1.25) mg/dL Glucose 112 H (74-99) mg/dL Troponin I (0.000-0.034) ng/mL Total Protein 6.0 L (6.3-8.2) g/dL Assessment and Plan Assessment: Elevated troponin with epigastric pain concerning for non-STEMI, status post cardiac cath and stent of the LAD branches leukocytosis and fever. Unknown source. Ingram Virus is negative. Most likely related to his cardiac disease. Rule out infection Hypertension Hyperlipidemia History of GERD Plan: This is a pleasant 64 years old male who presents with non-STEMI and fever, improvement. Continue with aspirin and brilintta, and metoprolol and follow up with medical center manager recommendation. Follow-up infectious disease recommendation and culture results continue with the patient empirically on Zosyn. Labs and medication were reviewed.. Continue same treatment. Continue with symptomatic treatment. Resume home medication. Monitor lytes and vitals. DVT and GI prophylaxis. Further recommendations depends on the clinical course of the patient DVT prophylaxis: heparin GI Prophylaxis: Ppi Prognosis is guarded
[2020-04-28] MEDS: PIPERACILLIN-TAZOBACTAM 3.375 GM in SODIUM CHLORIDE 0.9% 100 ML IVPB SCH ×3 (05:43→20:53)
--- NOTE | 2020-04-28 07:04 | CONS ---
CONSULTATION DATE OF SERVICE: 04/27/2020 REASON FOR CONSULTATION: Sepsis, unknown source. HISTORY OF PRESENT ILLNESS: The patient is a 64-year-old male presenting to the ER yesterday morning for evaluation of epigastric pain. The patient's symptoms have been going on for a day or two before presentation to the hospital. The pain has been mostly dull aching to sharp 4-5/10 and no radiation with associated nausea but no vomiting. The patient denies having any chest pain, shortness of breath or cough. No diarrhea and no urinary symptoms. Patient on presentation to the hospital did have a fever of 101 degrees Fahrenheit with low-grade fever of 99.8 early this morning. The patient has been afebrile since then. The patient is currently 96% on room air. The patient did have white count 13.1 on admission down to 10.8 today. Kidney function was normal. The patient did have elevated troponin. Liver enzymes are normal. Urine has been negative. Ingram PCR was negative. The patient did have a chest x-ray that did not show any acute infiltrate. CT of the chest did not show any pneumonia. A CT of abdomen and pelvis was negative as well. The patient is status post cardiac cath and stenting of the LAD. In this patient who has been empirically treated with Zosyn, Infectious Disease was consulted today for concern for sepsis with unknown source. The patient overall is feeling better since admission to the hospital. REVIEW OF SYSTEMS: Positive points have been mentioned in HPI. Rest of systems are negative. PAST MEDICAL HISTORY: Significant for hypertension, hyperlipidemia, gastroesophageal reflux disease. PAST SURGERY HISTORY: No major surgery. SOCIAL HISTORY: Denies smoking, drinking or any drug use. FAMILY HISTORY: No pertinent findings noticed. ALLERGIES: CINNAMON. MEDICATIONS: The patient is currently on aspirin, Lipitor, heparin, Zestril, Lopressor, Protonix, Zosyn, Brilinta. PHYSICAL EXAMINATION: VITAL SIGNS: Blood pressure 123/80 with a pulse of 96, temperature 98.5, T-max 101, he is 96% on room air. GENERAL DESCRIPTION: Patient is a middle-aged male lying in bed in no distress. No tachypnea or accessory muscles of respiration use. HEENT: Examination shows no pallor or scleral icterus. Oral mucous membrane is dry. No pharyngeal erythema or thrush. NECK: Trachea central, no thyromegaly. LUNGS: Unlabored breathing, clear to auscultation. No wheeze or crackle. HEART: S1-S2, regular rate and rhythm. ABDOMEN: Soft, no tenderness. No guarding or rigidity. No organomegaly. EXTREMITIES: No edema of the feet. SKIN: No rash or mass palpable. NEUROLOGICAL: Patient is awake, alert, oriented times three. Mood and affect normal. LABS: Blood culture has been negative so far. Urine is negative. White count down 10.8 and admission white count was 13.1 with left shift. Liver enzymes are normal. Urine is negative. DIAGNOSTIC IMPRESSION: Patient presented to hospital mostly with epigastric pain in this patient with diagnosis of acute myocardial infarction and is status post stenting of the left anterior descending. However, the patient did have elevated white count and fever with no obvious focus of infection. The patient did have a CT of the chest, abdomen and pelvis that did not show any acute abnormality and urine has been negative. No evidence of any cellulitis or joint swelling. PLAN: 1. Keep the patient on Zosyn in this patient with fever while we are waiting for the cultures to finalize. 2. We will obtain a WBC scan and further workup on the basis of that scan. 3. We will follow on clinical condition to further adjust medication if needed. Thank you for this consultation. Will follow this patient along with you. MMODL / IJN: [id number] /
[2020-04-28 08:40] LABS: INR 0.9 (<1.2); Prothrombin Time 10.2 sec (9.0-12.0)
[2020-04-28 08:47] LABS: Basophils % (A) 0 %; Eosinophils # (A) 0.1 k/uL (0-0.7); Eosinophils % (A) 1 %; HCT 38.1 % (39.0-53.0); HGB 13.2 gm/dL (13.0-17.5); Lymphocytes # (A) 1.3 k/uL (1.0-4.8); Lymphocytes % (A) 15 %; MCH 31.1 pg (25.0-35.0); MCHC 34.5 g/dL (31.0-37.0); Mean Platelet Volume 6.6; Monocytes # (A) 0.6 k/uL (0-1.0); Monocytes % (A) 7 %; Neutrophils # (A) 6.5 k/uL (1.3-7.7); Neutrophils % (A) 77 %; Platelet Count 184 k/uL (150-450); RBC 4.24 m/uL (4.30-5.90); RDW 12.7 % (11.5-15.5); WBC 8.5 k/uL (3.8-10.6)
[2020-04-28 08:50] LABS: C Reactive Protein 26.7 mg/L (<10.0); Calcium 8.8 mg/dL (8.4-10.2); Potassium 3.6 mmol/L (3.5-5.1)
[2020-04-28] MEDS: METOPROLOL TARTRATE 50 MG TAB PO SCH (08:54)
[2020-04-28] MEDS: ATORVASTATIN 80 MG TAB PO SCH (08:54)
[2020-04-28] MEDS: lisinopriL 20 MG TAB PO SCH (08:54)
[2020-04-28] MEDS: ASPIRIN 81 MG PO SCH (08:54)
[2020-04-28] MEDS: PANTOPRAZOLE 40 MG TABLET PO SCH (08:54)
[2020-04-28] MEDS ORDERED: TICAGRELOR 90 MG TAB PO SCH (09:00)
[2020-04-28 09:32] LABS: Erythrocyte Sedimentation Rate 18 mm/hr (0-15)
[2020-04-28] MEDS ORDERED: POTASSIUM CHLORIDE ER 20 MEQ TAB.ER PO STA (11:41)
--- NOTE | 2020-04-28 12:57 | P.PN ---
Subjective This is a pleasant 64 years old male with past medical history of hypertension, hyperlipidemia, gastroesophageal reflux disease. He follows up at the [facility]. He presents because of upper abdominal pain and tenderness of 2 days' duration that wake him up yesterday, it is across the upper abdomen and lower chest but his tenderness mainly in the epigastric. He tried several nayo-clc-dcloous medication like this mass, and antiacids with no help, enter on each right sodium bicarb and baking soda which helped a little bit. He describe s the pain as burning, 3/10 in severity associated with nausea and vomiting twice. No other chest pain or dyspnea. No coughing. Both complains from some cramping in the both legs He denies smoking, alcohol or illicit drug. On admission he developed fever of 101, blood pressure is 1:30/93. Restoril vitals are stable and he is saturating 98% on room air He had mild leukocytosis of 13.1 K, BMP and liver enzymes are unremarkable but troponin is elevated 6.8 and 7.2, Lipase is normal at 76 Urine analysis looks dehydrated sample but not very suggestive of infection. Ingram virus not detected Patient had CT of the abdomen and pelvis with IV contrast which was unremarkable CT of the chest without contrast showing mild atelectasis, no consolidation, no suspicious pulmonary mass, no evidence of bronchopneumonia EKG showing normal sinus rhythm at 76 with poor R-wave progression in V1 to V2, T-wave inversion in V1 to V6. QTC is 454 in emergency room animal doctor team evaluated the patient and they were planning for cardiac cath today however patient developed significant fever of 101 so ca rdiac cath was held and patient was placed on heparin drip 04/27/2020 Patient underwent cardiac cath today with stent placement in the LAD, status post stent placement. Today his upper abdominal pain is feeling better and currently rated as 0/10. Vitals are stable. Leukocytosis improving down to 10.8 gait. procalcitonin is normal at 0.05. He had low-grade temperature this morning and 8.8. Patient is already started on Zosyn however it looks like his fever and leukocytosis related to his cardiac disease rather than infection. Infectious disease on the case hour solutions market consultant and we are waiting for their final recommendation. Creatinine went up a little bit 1.39, patient yesterday got some contrast with CT of the abdomen. CT of the chest was done without contrast. Also patient today Cardiac cath so we'll monitor his creatinine tomorrow. 04/28/2020 Patient presents with upper abdominal pain secondary to non-STEMI he underwent cardiac cath with Dr. Ballard with stent placement in mid LAD and major diagonal branch. Patient was started on aspirin and Brillinta and importance of met astasis is explained to the patient. There was suspicion of sepsis upon admission with fever leukocytosis, mostly is a due to his non-STEMI, however his blood culture is still pending final results and in the meantime he remains on Zosyn. Infectious disease input is appreciated. Creatinine stable at 1.3. D-dimer is negative. Objective - Vital Signs Vital signs: Vital Signs Temp 98.7 F 04/28/20 12:00 Pulse 74 04/28/20 12:00 Resp 16 04/28/20 12:00 BP 122/74 04/28/20 12:00 Pulse Ox 97 04/28/20 12:00 Intake & Output 04/27/20 04/28/20 04/28/20 18:59 06:59 18:59 Intake Total 1102.5 1840 925 Balance 1102.5 1840 925 Weight 68.2 kg Intake: IV 727.5 1300 375 Piperacillin-Tazobactam 3 100 100 .375 gm In Sodium Chloride 0.9% 100 ml @ 25 mls/hr IVPB Q8H [facility] Rx#: [id number] Sodium Chloride 0.9% 1, 600 1200 375 000 ml @ 75 mls/hr IV . [id number] [facility] Rx#:[id number] Oral 375 540 550 Other: Voiding Method Urinal Urinal Urinal # Voids 1 - Exam GENERAL: The patient is alert and oriented x3, not in any acute distress. Well developed, well nourished. HEENT: Pupils are round and equally reacting to light. EOMI. No scleral icterus. No conjunctival pallor. Normocephalic, atraumatic. No pharyngeal erythema. No thyromegaly. CARDIOVASCULAR: S1 and S2 present. No murmurs, rubs, or gallops. PULMONARY: Chest is clear to auscultation, no wheezing or crackles. ABDOMEN: Soft, nontender, nondistended, normoactive bowel sounds. No palpable organomegaly. MUSCULOSKELETAL: No joint swelling or deformity. EXTREMITIES: No cyanosis, clubbing, or pedal edema. NEUROLOGICAL: Gross neurological examination did not reveal any focal deficits. SKIN: No rashes. no petechiae. - Labs CBC & Chem 7: 04/28/20 07:51 04/28/20 07:51 Labs: Abnormal Lab Results - Last 24 Hours (Table) 04/28/20 04/28/20 Range/Units 07:51 07:51 RBC 4.24 L (4.30-5.90) m/uL Hct 38.1 L (39.0-53.0) % ESR 18 H (0-15) mm/hr Sodium 135 L (137-145) mmol/L Carbon Dioxide 21 L (22-30) mmol/L Creatinine 1.34 H (0.66-1.25) mg/dL Glucose 111 H (74-99) mg/dL C-Reactive Protein 26.7 H (<10.0) mg/L Microbiology - Last 24 Hours (Table) 04/26/20 20:17 Blood Culture - Preliminary Blood No Growth after 24 hours Assessment and Plan Assessment: Elevated troponin with epigastric pain concerning for non-STEMI, status post cardiac cath and stent of the LAD branches leukocytosis and fever. Unknown source. Ingram Virus is negative. Most likely related to his cardiac disease. Rule out infection Hypertension Hyperlipidemia History of GERD Plan: This is a pleasant 64 years old male who presents with non-STEMI and fever, improvement. Continue with aspirin and brilintta, and metoprolol and follow up with animal doctor recommendation. Follow-up infectious disease recommendation and culture results continue with the patient empirically on Zosyn. Follow-up blood culture results Labs and medication were reviewed.. Continue same treatment. Continue with symptomatic treatment. Resume home medication. Monitor lytes and vitals. DVT and GI prophylaxis. Further recommendations depends on the clinical course of the patient DVT prophylaxis: heparin GI Prophylaxis: Ppi Prognosis is guarded
[2020-04-28] MEDS ORDERED: CLOPIDOGREL 75 MG TAB PO STA (13:17)
--- NOTE | 2020-04-28 14:00 | P.PN ---
Subjective Progress Note Date: 04/28/20 HISTORY OF PRESENT ILLNESS: 04/26/2020 This is a 64-year-old male with a past medical history significant for hypertension and hyperlipidemia. Patient does not follow with a tubing mill setter. We have been asked to see the patient in consultation for abnormal troponins. Patient examined at the bedside in the emergency room. Patient states a few days ago he went to the store and got a 44 ounce Pepsi in the evening and then went to bed. He reports epigastric discomfort in the following morning which he attributed to drinking a large Pepsi the night before. He reports some mild discomfort across his upper left and right abdominal quadrants as well. He reports taking multiple pjpd-aiy-rpvwtfq medications including Tums and sodium bicarb without much relief. He also reports intermittent left-sided chest discomfort since yesterday afternoon. He states yesterday afternoon he decided to go for a walk to see if it would help the discomfort. He states he became nauseated and had an episode of emesis. He denies shortness of breath. Denies cough or congestion. Patient reports over the last 2 days his blood pressure has been elevated with a systolic in the 150s. Patient states his blood pressure usually runs with a systolic in the 120s. EKG reveals sinus mechanism with T-wave inversions in V3 through V5 Chest xray negative for acute process Laboratory data: WBC 13.1. Hemoglobin 14.9. Platelet count 216. Sodium 137. Potassium 3.7. BUN 19. Creatinine 1.25. Troponin 6.880. Current home cardiac medications include amlodipine 10 mg daily, simvastatin 40 mg daily, and lisinopril 41 g daily 04/28/2020 Patient underwent cardiac cath yesterday with Dr. Ballard with PCI of the mid LAD and major diagonal branch. Patient denies chest pain or pressure. He denies shortness of breath. Blood pressure 122/74. Heart rate in the 70s. He is on room air with oxygen saturations greater than 92%. Echocardiogram revealed ejection fraction 45-50%, trace mitral regurgitation, and trace tricuspid regurgitation. PHYSICAL EXAM: VITAL SIGNS: Reviewed. GENERAL: Well-developed in no acute distress. HEENT: Head is normocephalic. Pupils are equal, round. Sclerae anicteric. Mucous membranes of the mouth are moist. Neck supple. No JVD or thyromegaly LUNGS: Respirations even and unlabored. Lungs essentially clear to auscultation bilaterally. HEART: Regular rate and rhythm. S1 and S2 heard. Soft systolic murmur noted. ABDOMEN: Soft. Nondistended. Nontender. EXTREMITIES: Normal range of motion. No clubbing or cyanosis. Peripheral pulses intact. No lower extremity edema. Right radial cath site with pulse present. NEUROLOGIC: Awake and alert. Oriented x 3. ASSESSMENT: Epigastric pain Non-ST elevated myocardial infarction, status post cardiac cath with PCI Hypertension Hyperlipidemia Fever with leukocytosis PLAN: Continue current cardiac medications Brilinta not covered by patient's insurance. Will DC Brilinta. Give plavix 300mg x 1 dose now. Begin 75mg tomorrow morning Patient is stable for discharge home today from a cardiac standpoint Nurse practitioner note has been reviewed by physician. Signing provider agrees with the documented findings, assessment, and plan of care. Objective - Vital Signs Vital signs: Vital Signs Temp 98.7 F 04/28/20 12:00 Pulse 74 04/28/20 12:00 Resp 16 04/28/20 12:00 BP 122/74 04/28/20 12:00 Pulse Ox 97 04/28/20 12:00 Intake & Output 04/27/20 04/28/20 04/28/20 18:59 06:59 18:59 Intake Total 1102.5 1840 925 Balance 1102.5 1840 925 Weight 68.2 kg Intake: IV 727.5 1300 375 Piperacillin-Tazobactam 3 100 100 .375 gm In Sodium Chloride 0.9% 100 ml @ 25 mls/hr IVPB Q8H [facility] Rx#: [id number] Sodium Chloride 0.9% 1, 600 1200 375 000 ml @ 75 mls/hr IV . [id number] [facility] Rx#:[id number] Oral 375 540 550 Other: Voiding Method Urinal Urinal Urinal # Voids 1 - Labs CBC & Chem 7: 04/28/20 07:51 04/28/20 07:51 Labs: Abnormal Lab Results - Last 24 Hours (Table) 04/28/20 04/28/20 Range/Units 07:51 07:51 RBC 4.24 L (4.30-5.90) m/uL Hct 38.1 L (39.0-53.0) % ESR 18 H (0-15) mm/hr Sodium 135 L (137-145) mmol/L Carbon Dioxide 21 L (22-30) mmol/L Creatinine 1.34 H (0.66-1.25) mg/dL Glucose 111 H (74-99) mg/dL C-Reactive Protein 26.7 H (<10.0) mg/L Microbiology - Last 24 Hours (Table) 04/26/20 20:17 Blood Culture - Preliminary Blood No Growth after 24 hours
--- NOTE | 2020-04-28 16:28 | PN ---
PROGRESS NOTE DATE OF SERVICE: 04/28/2020 REASON FOR FOLLOWUP: Fever and leukocytosis. INTERVAL HISTORY: The patient is currently afebrile. Patient is breathing comfortably. The patient denies having any chest pain, no shortness of breath or cough. No nausea, no vomiting. No abdominal pain, no diarrhea. PHYSICAL EXAMINATION: Blood pressure 122/74, pulse of 74, temperature 98.7. He is 97% on room air. General description is a middle-aged male lying in bed in no distress. RESPIRATORY SYSTEM: Unlabored breathing clear to auscultation anteriorly. HEART: S1, S2. Regular rate and rhythm. ABDOMEN: Soft, no tenderness. LABS: White count normalized to 8.5. Creatinine is 1.34. CRP 26.7. Blood culture negative. DIAGNOSTIC IMPRESSION AND PLAN: Patient admitted to the hospital with epigastric pain in this patient who did have a fever, elevated white count. Patient did have a myocardial infarction, status post PTCA and stenting to the LAD; however, no obvious focus for his fever. Patient did have CT chest, abdomen and pelvis, did not show any abnormality and his urine was negative. We did ask for a WBC scan, will keep the patient on Zosyn while waiting for the to be finalized. Continue supportive care. MMODL / IJN: [id number] /
--- NOTE | 2020-04-28 17:21 | NM ---
EXAMINATION TYPE: NM WBC whole body DATE OF EXAM: 04/28/2020 COMPARISON: NONE HISTORY: Fever TECHNIQUE: Following administration of 12.11 mCi Tc99m Ceretec. Images obtained 4 hours post inject ion. FINDINGS: Normal physiological tracer activity is noted in the liver and spleen and in the bone marrow of the a xial and appendicular skeleton. IMPRESSION: Normal white blood cell scan. No evidence for abnormal tracer activity. Exam fails to demonstrate primo dence of pyogenic infection.
[2020-04-28] MEDS: METOPROLOL TARTRATE 25 MG TAB PO SCH (20:53)
[2020-04-29] MEDS: PIPERACILLIN-TAZOBACTAM 3.375 GM in SODIUM CHLORIDE 0.9% 100 ML IVPB SCH ×2 (04:11→11:38)
[2020-04-29 07:58] LABS: Basophils % (A) 0 %; Eosinophils # (A) 0.2 k/uL (0-0.7); Eosinophils % (A) 2 %; HCT 39.6 % (39.0-53.0); HGB 13.5 gm/dL (13.0-17.5); Lymphocytes # (A) 1.4 k/uL (1.0-4.8); Lymphocytes % (A) 17 %; MCH 31.1 pg (25.0-35.0); MCHC 34.1 g/dL (31.0-37.0); MCV 91.1 fL (80.0-100.0); Mean Platelet Volume 6.6; Monocytes # (A) 0.6 k/uL (0-1.0); Monocytes % (A) 7 %; Neutrophils # (A) 6.3 k/uL (1.3-7.7); Neutrophils % (A) 73 %; Platelet Count 204 k/uL (150-450); RBC 4.34 m/uL (4.30-5.90); RDW 12.2 % (11.5-15.5); WBC 8.6 k/uL (3.8-10.6)
[2020-04-29 08:08] LABS: Prothrombin Time 10.3 sec (9.0-12.0)
[2020-04-29] MEDS: PANTOPRAZOLE 40 MG TABLET PO SCH (08:39)
[2020-04-29] MEDS: METOPROLOL TARTRATE 50 MG TAB PO SCH (08:39)
[2020-04-29] MEDS: lisinopriL 20 MG TAB PO SCH (08:39)
[2020-04-29] MEDS: ATORVASTATIN 80 MG TAB PO SCH (08:39)
[2020-04-29] MEDS: ASPIRIN 81 MG PO SCH (08:39)
[2020-04-29] MEDS ORDERED: CLOPIDOGREL 75 MG TAB PO SCH (09:00)
[2020-04-29 11:34] VITALS: BP 109/70; PULSE 68; RESP 16; TEMP 98.4
--- NOTE | 2020-04-29 14:18 | PN ---
PROGRESS NOTE This is a 64-year-old gentleman who I performed stenting of mid LAD and major diagonal branch with a drug-eluting stents on 04/27/2020. Yesterday, he was supposed to be discharged, but because of a fever of unclear etiology, workup is in progress. He is doing well, asymptomatic. Right radial site is clean and dry. Vitals are stable. No JVD. S1, S2 heard normally, short systolic murmur noted. Lungs are clear. Abdomen and lower extremity exam unchanged. Cardiac-lopez, he is stable. He does have a circumflex lesion which will be addressed at a later date. If he is cleared by his infectious disease doctor, he can be discharged and I will see him in the office in 7-10 days. Discharge instructions regarding activity, diet and medications were given. MMODL / IJN: [id number] /
--- NOTE | 2020-04-29 16:39 | PN ---
PROGRESS NOTE DATE OF SERVICE: 04/29/2020 REASON FOR FOLLOWUP: Fever and elevated white count. INTERVAL HISTORY: The patient was seen on rounds early this afternoon. The patient has been afebrile. The patient is feeling better. He is breathing comfortably. Denies having any chest pain, shortness of breath or cough. No abdominal pain or diarrhea. PHYSICAL EXAMINATION: Blood pressure 109/70 with a pulse of 68, temperature 98.4. He is 97% on room air. General description is a middle-aged male lying in bed in no distress. RESPIRATORY SYSTEM: Unlabored breathing, clear to auscultation. HEART: S1, S2. Regular rate and rhythm. ABDOMEN: Soft, no tenderness. LABS: Hemoglobin 13.5, white count 8.6. Blood culture has been negative. WBC scan came back negative as well. DIAGNOSTIC IMPRESSION AND PLAN: Patient with a fever, elevated white count in this patient presented to the hospital with acute myocardial infarction, status post PTCA and stenting to the LAD. The patient's fever resolved, white count normalized and no focus of infection. CT chest, abdomen and pelvis did not show any evidence of infection. Culture negative. May consider a short course of oral Augmentin on discharge and a close outpatient followup. All his questions and concerns were answered. MMODL / IJN: [id number] /
== END 2020-04-29 13:46 | disposition home or self-care (01) | DRG 246 ==
LOC: EC 11:20 → 3SCARD 13:33
PROVIDERS: ADMIT Internal Medicine; ATTEND Internal Medicine
PROC: 027137Z Dilation of Coronary Artery, Two Arteries with Four or More Drug-eluting Intraluminal Devices, Percutaneous Approach (ICD-10-PCS; principal; 2020-04-27 06:38)
PROC: 4A023N7 Measurement of Cardiac Sampling and Pressure, Left Heart, Percutaneous Approach (ICD-10-PCS; 2020-04-27 06:38)
PROC: B2111ZZ Fluoroscopy of Multiple Coronary Arteries using Low Osmolar Contrast (ICD-10-PCS; 2020-04-27 06:38)
DX: I21.4 Non-ST elevation (NSTEMI) myocardial infarction (principal); J98.11 Atelectasis; Z20.822 Contact with and (suspected) exposure to COVID-19; K21.9 Gastro-esophageal reflux disease without esophagitis; E78.5 Hyperlipidemia, unspecified; I10 Essential (primary) hypertension; I25.10 Atherosclerotic heart disease of native coronary artery without angina pectoris; R10.13 Epigastric pain; D72.829 Elevated white blood cell count, unspecified; R50.9 Fever, unspecified; E86.0 Dehydration; I25.84 Coronary atherosclerosis due to calcified coronary lesion; K25.9 Gastric ulcer, unspecified as acute or chronic, without hemorrhage or perforation; Z79.899 Other long term (current) drug therapy; Z87.81 Personal history of (healed) traumatic fracture
CPT/HCPCS: 36415; 71046; 71250; 74177; 78306; 80048; 80053; 80061; 80076; 81001; 82150; 83036; 83605; 83690; 84145; 84484; 85025; 85379; 85610; 85652; 85730; 86140; 87040; 87635; 93005; 93306; 93458; 93970; 96365; 96366; 96375; 99285

== ENCOUNTER 2020-05-01 03:58 | Emergency (ER) | payer OTHER ==
[2020-05-01 04:04] VITALS: BP 132/92; PULSE 80; RESP 18; TEMP 98.4
--- NOTE | 2020-05-01 04:45 | ED ---
Extremity Problem HPI - General Chief complaint: Extremity Problem,Nontraumatic Stated complaint: leg cramping Time Seen by Provider: 05/01/20 04:29 Source: patient Mode of arrival: ambulatory Limitations: no limitations - Related Data Home Medications Medication Instructions Recorded Confirmed [id number] [Beano] 300 unit PO AC-TID PRN 04/26/20 04/26/20 Cholecalciferol [Vitamin D3 (25 25 mcg PO DAILY 04/26/20 04/26/20 Mcg = 1000 Iu)] Omeprazole [PriLOSEC] 40 mg PO DAILY 04/26/20 04/26/20 Previous Rx's Medication Instructions Recorded Aspirin 81 mg PO DAILY chew 04/28/20 Atorvastatin [Lipitor] 80 mg PO DAILY #90 tab 04/28/20 Clopidogrel [Plavix] 75 mg PO DAILY #90 tab 04/28/20 Metoprolol Tartrate [Lopressor] 25 mg PO HS tab 04/28/20 Metoprolol Tartrate [Lopressor] 50 mg PO DAILY #180 tab 04/28/20 Nitroglycerin Sl Tabs [Nitrostat] 0.4 mg SUBLINGUAL Q5M PRN #1 bottle 04/28/20 lisinopriL [Zestril] 20 mg PO DAILY #90 tab 04/28/20 Amoxic-Pot Clav 875-125Mg 1 tab PO Q12HR 7 Days #14 tab 04/29/20 [Augmentin 875-125] Allergies Allergy/AdvReac Type Severity Reaction Status Date / Time cinnamon Allergy Rash/Hives Verified 05/01/20 04:02 Review of Systems ROS Statement: Those systems with pertinent positive or pertinent negative responses have been documented in the HPI. ROS Other: All systems not noted in ROS Statement are negative. Past Medical History Past Medical History: GERD/Reflux, Hyperlipidemia, Hypertension Additional Past Medical History / Comment(s): HAIRLINE FRACTURES TO BILATERAL HIPS, SPINAL CORD PROBLEMS/ CHIP FX History of Any Multi-Drug Resistant Organisms: None Reported Past Surgical History: No Surgical Hx Reported Additional Past Surgical History / Comment(s): hemorroid Past Psychological History: No Psychological Hx Reported Smoking Status: Never smoker Past Alcohol Use History: None Reported Past Drug Use History: None Reported General Exam Limitations: no limitations Course Vital Signs 05/01/20 04:02 Temperature 98.4 F Pulse Rate 80 Respiratory 18 Rate Blood Pressure 132/92 O2 Sat by Pulse 99 Oximetry Disposition Clinical Impression: Left leg pain Disposition: HOME SELF-CARE Condition: Good Instructions (If sedation given, give patient instructions): Leg Pain (ED) Is patient prescribed a controlled substance at d/c from ED?: No Referrals: [facility],Clinic [Primary Care Provider] - 1-2 days
== END 2020-05-01 04:57 | disposition home or self-care (01) ==
LOC: EC 03:58
DX: M79.605 Pain in left leg (principal); K21.9 Gastro-esophageal reflux disease without esophagitis; E78.5 Hyperlipidemia, unspecified; I10 Essential (primary) hypertension
CPT/HCPCS: 99283

== ENCOUNTER 2020-06-15 06:43 | Day surgery (SDC) | payer OTHER ==
[2020-06-10 14:29] VITALS: BMI 24.3
[2020-06-15] MEDS ORDERED: NITROGLYCERIN SL TABS 0.4 MG TAB SUBLINGUAL PRN (06:57)
[2020-06-15] MEDS ORDERED: ALPRAZolam 0.5 MG TAB PO PRN (06:57)
[2020-06-15] MEDS ORDERED: ATORVASTATIN 80 MG TAB PO STA (06:57)
[2020-06-15] MEDS ORDERED: ASPIRIN 325 MG TAB PO STA (06:57)
[2020-06-15] MEDS ORDERED: SODIUM CHLORIDE 0.9% 1,000 ML in EMPTY BAG 1 BAG IV ONE (06:57)
[2020-06-15] MEDS ORDERED: ALPRAZolam 0.25 MG TAB PO PRN (06:57)
[2020-06-15 07:13] VITALS: RESP 16; TEMP 98.2
[2020-06-15 07:29] LABS: Basophils # (A) 0.1 k/uL (0-0.2); Basophils % (A) 1 %; Eosinophils # (A) 0.6 k/uL (0-0.7); Eosinophils % (A) 8 %; HCT 40.5 % (39.0-53.0); HGB 13.9 gm/dL (13.0-17.5); Lymphocytes # (A) 1.9 k/uL (1.0-4.8); Lymphocytes % (A) 25 %; MCH 31.1 pg (25.0-35.0); MCHC 34.3 g/dL (31.0-37.0); MCV 90.7 fL (80.0-100.0); Mean Platelet Volume 6.4; Monocytes # (A) 0.4 k/uL (0-1.0); Monocytes % (A) 6 %; Neutrophils # (A) 4.7 k/uL (1.3-7.7); Neutrophils % (A) 60 %; Platelet Count 249 k/uL (150-450); RBC 4.46 m/uL (4.30-5.90); RDW 12.5 % (11.5-15.5); WBC 7.8 k/uL (3.8-10.6)
[2020-06-15 07:39] LABS: Potassium 4.3 mmol/L (3.5-5.1)
[2020-06-15] MEDS ORDERED: VERAPAMIL 2.5 MG/ML 2 ML AMP ONE (09:12)
[2020-06-15] MEDS ORDERED: LIDOCAINE 1% INJ 10MG/ML (20 ML MDV) ONE (09:12)
[2020-06-15] MEDS ORDERED: HEPARIN SODIUM 1,000 UN/ML (10ML VL) ONE (09:12)
[2020-06-15] MEDS ORDERED: MIDAZOLAM 2 MG/2 ML VIAL IV ONE (09:50)
[2020-06-15] MEDS ORDERED: LIDOCAINE 1% INJ 10MG/ML (20 ML MDV) SQ ONE (09:50)
[2020-06-15] MEDS ORDERED: VERAPAMIL SYRINGE (5 MG/10 ML) INTRAARTER ONE (09:53)
[2020-06-15] MEDS: HEPARIN SODIUM 1,000 UN/ML (10ML VL) IV ONE ×2 (10:00→10:16)
[2020-06-15] MEDS ORDERED: IOPAMIDOL-370 100ML BTL INJ ONE ×2 (10:30→10:36)
[2020-06-15] MEDS ORDERED: NITROGLYCERIN 1000MCG/10ML SYRINGE INTRACORON ONE (10:33)
[2020-06-15] MEDS ORDERED: CLOPIDOGREL 75 MG TAB ONE (10:39)
[2020-06-15] MEDS ORDERED: CLOPIDOGREL 75 MG TAB PO ONE (10:41)
[2020-06-15] MEDS ORDERED: SODIUM CHLORIDE 0.9% 1,000 ML IV SCH (11:15)
--- NOTE | 2020-06-15 12:40 | PTCA ---
PERCUTANEOUSTRANS CORORONARY ANGIOGRAPHY DATE OF SERVICE: 06/15/2020. PROCEDURE: 1. Left coronary angiogram to assess patency of LAD and diagonal that was stented in April 2020. 2. PTCA and stenting of proximal circumflex with 2 drug-eluting stents. PERFORMED BY: Dr. Ester Ballard. Moderate conscious sedation time was 50 minutes. The patient was administered Versed. Oxygen saturation, hemodynamics and EKG were monitored closely. CLINICAL INFORMATION: Mr. Wilton Wayne is a 65-year-old gentleman with history of hypertension, hyperlipidemia, and chronic kidney disease with a creatinine of about 1.5 or so. He presented with a non-ST elevation MD underwent stenting of LAD and diagonal on April 27, 2020 with an excellent result. He was advised to come back in for staged intervention of circumflex which had 80% long proximal lesion, tortuous, calcified and somewhat difficult technically. He was advised that we will check patency of LAD and diagonal and performed PCI of circumflex. Risks, benefits, options, rationale were explained. The patient understood all details and wished to proceed with the procedure. PROCEDURE NOTE: Under local anesthesia and strict aseptic precautions, a 6-Mongolian introducer was placed in the right radial artery. Initially I used a JL3.5 guide catheter. With this I did selective coronary angiography and noted that the LAD and diagonal were widely patent. I advanced the wire into the circumflex and pre-dilated the lesion with a 2.5 caliber 15 mm long NC Trek balloon. After that, I tried to advance 8 mm long 3.25 caliber Xience stent, but I had considerable difficulty because of tortuosity of the circumflex as it came down from the left main and also difficult guide support. I also tried to use a GuideLiner, but even with this I had difficulty and the catheter and the wire came out. I then switched over to an XB left guide catheter of 4.0 curved with this and the same run-through wire I advanced a 3.25 caliber 8 mm Xience stent carefully positioned at the distal end of the lesion just before bifurcation and deployed it at 13 atmospheres. Subsequently a 15 mm long Xience stent was deployed proximal to it and deployed at 13 atmospheres. Patient had chest pain, but no significant EKG changes. Excellent angiographic result was achieved. The sheath was taken out and a TR band applied as per protocol and saturation of the fingers of the right hand was 95%. The patient received additional 225 mg of Plavix. He was already on aspirin and Plavix. He received heparin intravenously of 6000 units and his ACT was about 262. The goal was to keep the ACT between 250 and 300. The sheath was taken out and the patient was sent to the room in stable condition. Results were discussed with the patient and family, specifically his sister. He will be discharged later this evening at 6 p.m. and I will see him in the office next week. Discharge instructions were given. Excellent angiographic result was achieved without complication. MMODL / IJN: [id number] /
[2020-06-15 13:14] VITALS: BP 133/84; PULSE 58
== END 2020-06-15 17:30 | disposition home or self-care (01) ==
LOC: CATHCVL 06:43
PROVIDERS: ATTEND Internal Medicine Interventional Cardiology
DX: I25.10 Atherosclerotic heart disease of native coronary artery without angina pectoris (principal); I25.84 Coronary atherosclerosis due to calcified coronary lesion; I12.9 Hypertensive chronic kidney disease with stage 1 through stage 4 chronic kidney disease, or unspecified chronic kidney disease; N18.9 Chronic kidney disease, unspecified; I77.1 Stricture of artery; E78.5 Hyperlipidemia, unspecified; Z95.5 Presence of coronary angioplasty implant and graft; I25.2 Old myocardial infarction; Z82.49 Family history of ischemic heart disease and other diseases of the circulatory system; E78.00 Pure hypercholesterolemia, unspecified; Z79.02 Long term (current) use of antithrombotics/antiplatelets; Z79.82 Long term (current) use of aspirin; Z79.899 Other long term (current) drug therapy
CPT/HCPCS: 80048; 85025; 87635; C9600; C1887 ×3; C1894; C1725; C1769; C1874; J2250; J2001; J1644; Q9967

== ENCOUNTER → 2024-09-01 | Outpatient (CLI) | payer OTHER ==
--- NOTE | 2024-09-01 11:11 | US ---
EXAMINATION TYPE: US kidneys/renal and bladder DATE OF EXAM: 09/01/2024 COMPARISON: CLINICAL INDICATION: Male, 69 years old with history of R94.4 ABNORMAL RESULTS OF KIDNEY FUNCTION SYMONE DIES; Abnormal labs. No pain. TECHNIQUE: Grayscale imaging of the bilateral kidneys and urinary bladder: FINDINGS: EXAM MEASUREMENTS: Right Kidney: 9.3 x 4.9 x 5.5 cm Left Kidney: 9.4 x 4.6 x 5.7 cm Right Kidney: No hydronephrosis or masses seen. Couple of echogenic foci may have minimal shadowing. Small nonobstructing renal stones may be present. Left Kidney: No hydronephrosis or masses seen. There may be some echogenic foci with shadowing in the left kidney without obstruction. Bladder: not well distended, anechoic Bilateral Jets not seen There is no evidence for hydronephrosis at this point in time. No masses are identified. The urinar y bladder is anechoic. IMPRESSION: 1. There may be punctate nonobstructing renal stones within the bilateral kidneys [facility], Workstation: [facility], 09/01/2024 11:09 AM
== END | disposition home or self-care (01) ==
LOC: RADUSWWP 10:11
PROVIDERS: ATTEND Nurse Practitioner Acute Care
DX: R94.4 Abnormal results of kidney function studies (principal)
CPT/HCPCS: 76770